=== PATIENT | female | born 1990 | race Caucasian/White ===

== ENCOUNTER 2016-12-11 20:31 | Emergency (ER) | payer BC, OTHER ==
[2016-12-11 21:08] LABS: Hematocrit 37.2 % (37.0-47.0); Hemoglobin 12.9 gm/dL (12.5-16.0); Mean Cell Volume 81.6 fl (78-100); Mean Corpuscular Hemoglobin 28.3 pg (27-31); Mean Corpuscular Hgb Conc 34.7 g/dl (32-36); Neutrophil # 3.7 K/mm3 (1.3-6.0); Platelet Count 295 K/mm3 (150-450); Red Blood Count 4.56 M/mm3 (4.2-5.4); Red Cell Distribution Width 13.2 % (11.5-14.0); White Blood Count 6.9 K/mm3 (4.0-10.5)
--- NOTE | 2016-12-11 23:00 | ERNOTE ---
ER Female HPI Date of Service: 12/11/16 Stated Complaint: 5 WEEKS . POSSIBLE MISCARIAGE Immunizations: IMMUNIZATION HX Immunizations Up to Date Yes Allergies/Adverse Reactions: Allergies No Known Allergies Allergy (Verified 07/09/14 05:52) Home Medications: HOME MEDICATIONS NK [No Home Medication] 12/11/16 [Last Taken Unknown] - History of Present Illness Narrative: SUPPOSEDLY 5 WEEK . SAYS LMP = OCTOBER 24 WITH HOME UHCG + 1 WEEK AGO. HAS MAD ARRANGEMENT TO HAVE 1ST OB VISIT [address] GUTIERREZ. TODAY ABOUT 1300 HAD SMALL VAG BLEEDING AND CRAMPS WITH SMALL CLOT . SAYS SHE HAS SPOTTED A LITTLE SINCE BUT NO CRAMPS.IS AB 1. NOT ON ANY MEDS. IS RH-. Review of Systems - Review of Systems Constitutional: Present: See HPI EYE: Present: no symptoms reported ENT: Present: no symptoms reported Respiratory: Present: no symptoms reported Cardiology: Present: no symptoms reported Gastrointestinal/Abdominal: Present: no symptoms reported Genitourinary: Present: See HPI Musculoskeletal: Present: no symptoms reported Skin: Present: no symptoms reported Neurological: Present: no symptoms reported Endocrine: Present: no symptoms reported Hematologic/Lymphatic: Present: no symptoms reported Psych: Present: no symptoms reported All Other Systems: All systems neg except as marked - Patient's Past Medical History Patient History - Medical: Anemia, Anxiety Patient History - Cardiac/Respiratory: Asthma Patient History - Cancer: No Hx of Cancer Patient History - Surgical Procedures: Patient History - Other: None LMP (females 10-50): other LMP (Calendar): 10/24/16 - Social History Living Situations: alone Abuse History: No History of abuse Psych History: Hx of Anxiety Smoking Status: Current every day smoker Have you smoked in the past 12 months: Yes Do you dip or chew tobacco: No Alcohol Use: rarely Drug Use: none - Immunizations Immunizations Up to Date: Yes Physical Exam - Physical Exam General Appearance: Present: wd/wn, alert, no apparent distress Ears, Nose, Throat: Present: normal ENT inspection Respiratory: Present: no respiratory distress, normal breath sounds, no accessory muscle use, chest nontender, lungs clear Cardiovascular/Chest: Present: regular rate, rhythm, no murmur Gastrointestinal/Abdominal: Present: normal bowel sounds, nontender, nondistended, no organomegaly Back Exam: Present: normal inspection, no CVA tenderness Neurological Exam: Present: alert, oriented Skin Exam: Present: normal color ED Progress - Results and Orders Patient's Lab Results:: I have reviewed the patient's lab results. Results and Orders: CBC = NL . QUANT HCG = 57. O RH- - Vital Signs Patient's Vital Signs:: I have reviewed the patient's vital signs. Vital Signs: Vital Signs 12/11/16 12/11/16 20:38 21:44 Temperature 37.5 C 38.0 C H Pulse Rate 90 96 Respiratory 16 18 Rate Blood Pressure 139/88 120/75 O2 Sat by Pulse 99 100 Oximetry - CT/Ultrasound CT/Ultrasound Narrative: PREG US PER ARGUS = NO SIGN OF IUP AND NO UTERINE MAS AND NO SIGN OF ECTOPIC . THERE IS 1.9 CM RIGHT OVARIAN CYST. - Progress/Reassessment Chief Complaint: Genitourinary Problem Plan - Plan Plan: D/W DR MCKEON = GET US AND IF NEG HAVE F.U OUTPT. IF + FOR ECTOPIC CALL HIM BACK AND SHE WILL NEED RHOGAM. Departure Clinical Impression: Vagina bleeding Qualifiers: Weeks of gestation: less than 8 weeks Qualified Code(s): Z3A.01 - Less than 8 weeks gestation of - Departure Disposition: Home Follow Up Needed Condition: Good Instructions: Threatened Miscarriage, [id number], Miscarriage, [id number] Additional Instructions: WE WOULD ASSUME FROM THE CURRENT EVIDENCE THAT YOU HAVE HAD A MISCARRIAGE THOUGH YOU MAY HAVE A VERY EVERY EARLY AND THE DATE OF THE LAST PERIOD IS JUST MISLEADING. THERE WAS NO SIGN OF ECTOPIC OR AN INTRA-UTERINE OF THE US DONE TODAY. THEY DID NOTE A RIGHT OVARIAN CYST. FOLLOW UP WITH DR GUTIERREZ. YOU CAN CALL AND LET THEM KNOW YOU WERE SEEN HERE TODAY. Referrals: Nicki Gutierrez MD [Primary Care Provider] -
[2016-12-12 00:47] VITALS: BP 127/74
== END 2016-12-12 00:46 | disposition home or self-care (01) ==
LOC: ER 20:31
DX: O20.0 Threatened abortion (principal); Z3A.01 Less than 8 weeks gestation of pregnancy; Z72.0 Tobacco use